=== PATIENT | female | born 2000 | race Caucasian/White ===

== ENCOUNTER 2019-06-03 14:32 | Day surgery (SDC) | payer OTHER ==
[2019-06-03 15:20] VITALS: BMI 38.5
[2019-06-03] MEDS ORDERED: hydrALAZINE 20 MG/ML VIAL SLOW IVP PRN (15:49)
[2019-06-03 16:22] LABS: #Eosinphils 0.1 thou/uL (0.0-0.7); #Lymphocytes 1.8 thou/uL (1.20-3.40); #Monocytes 0.5 thou/uL (0.11-0.59); %Eosinophils 0.5 % (0.0-10.0); %Lymphocytes 19.7 % (21.0-51.0); %Monocytes 4.9 % (0.0-10.0); %Neutrophils 74.8 % (42.0-75.0); Hemoglobin 12.9 g/dL (12.0-16.0); Mean Corpuscular Hemoglobin 26.6 pg (27.0-31.0); Mean Corpuscular Volume 80.7 fL (78.0-98.0); Mean Platelet Volume 9.9 fL (7.4-10.4); Platelet Count 238 thou/uL (130-400); RBC Distribution Width 13.5 % (11.5-14.5); Red Blood Cell (RBC) Count 4.85 mill/uL (4.20-5.40); White Blood Cell (WBC) Count 9.4 thou/uL (4.8-10.8)
[2019-06-03 16:34] LABS: Creatinine, Urine 30.71 mg/dL (47-110); Protein, Urine Random Quant Less than 10 mg/dL (1-14)
--- NOTE | 2019-06-03 18:41 | ER ---
DATE OF SERVICE: 06/03/2019 TIME OF SERVICE: 1800 hours. PRESENTING COMPLAINT: Elevated blood pressures at home for evaluation at 35 weeks' gestation. HISTORY OF PRESENT ILLNESS: Ms. Escobar is a 1, para 0, who sees Dr. Severo Dodd at [facility], EDC is 07/04 which placed her at 35 weeks' gestation. She has been having some mildly elevated blood pressures noted in clinic and is watching blood pressures at home. She reported 140s to 150s at home with a mild headache. She presents for further evaluation. MANAGER OF PHOTOGRAPHY HISTORY: As noted. Blood type O positive, antibody negative. Pap negative. Rubella immune. VDRL nonreactive. Hepatitis B, GC, chlamydia negative. Group B strep not done. PAST MEDICAL HISTORY: Denies. PAST SURGICAL HISTORY: Tonsils. ALLERGIES: DENIES. MEDICATIONS: vitamins. SOCIAL HISTORY: Denies tobacco, alcohol, or IV drug use. FAMILY HISTORY: Noncontributory. REVIEW OF SYSTEMS: Noncontributory. PHYSICAL EXAMINATION: GENERAL: White female, in no acute distress. VITAL SIGNS: Initial blood pressure was 132/85, serial blood pressures revealed systolics between 108 and 142 and diastolics in the 80s. Pulse is 85, respirations 18, and temperature 98.6. HEENT: Within normal limits. LUNGS: Clear to auscultation bilaterally. HEART: Regular rate and rhythm. ABDOMEN: Soft and nontender. Fundal height of 35 cm. FHTs 140s. Category I heart rate tracing. EXTREMITIES: With trace edema. LABORATORY DATA: Dipstick urinalysis is 1+. Hematocrit is 39%, platelet count is 238. AST is 14. Ghtnazl-hd-fkqjlshffr ratio is immeasurably low. Serial blood pressures did not reveal any evidence of severe preeclampsia. The patient had reassuring heart rate tracing. IMPRESSION: Mild gestational hypertension/preeclampsia at 35 weeks' gestation. PLAN: Discharge home. Keep scheduled followup in [address] Dodd. Continue blood pressures at home. ER precautions. Job ID: [id number]
== END 2019-06-03 18:20 | disposition home or self-care (01) ==
LOC: L&D/OP 14:32
PROVIDERS: ATTEND Obstetrics & Gynecology
DX: O14.93 Unspecified pre-eclampsia, third trimester (principal); Z3A.35 35 weeks gestation of pregnancy
CPT/HCPCS: 36415; 82570; 84156; 84450; 85025; 99283

== ENCOUNTER 2019-06-07 10:53 | Day surgery (SDC) | payer OTHER ==
[2019-06-07 11:22] VITALS: BMI 39.3
[2019-06-07 11:48] LABS: #Lymphocytes 1.4 thou/uL (1.20-3.40); #Monocytes 0.4 thou/uL (0.11-0.59); #Neutrophils 8.3 thou/uL (1.40-6.50); %Basophils 0.2 % (0.0-1.0); %Eosinophils 0.3 % (0.0-10.0); %Lymphocytes 13.5 % (21.0-51.0); %Monocytes 3.9 % (0.0-10.0); %Neutrophils 82.1 % (42.0-75.0); Hemoglobin 12.3 g/dL (12.0-16.0); Mean Corpuscular HGB CONC 33.2 g/dL (32.0-36.0); Mean Corpuscular Hemoglobin 26.4 pg (27.0-31.0); Mean Corpuscular Volume 79.6 fL (78.0-98.0); Mean Platelet Volume 9.8 fL (7.4-10.4); Platelet Count 206 thou/uL (130-400); RBC Distribution Width 13.5 % (11.5-14.5); Red Blood Cell (RBC) Count 4.66 mill/uL (4.20-5.40)
[2019-06-07 12:21] LABS: ALT (SGPT) 14 U/L (8-55); AST (SGOT) 13 U/L (5-34); Albumin 3.4 g/dL (3.5-5.0); Alkaline Phosphatase 267 U/L (40-150); Anion Gap 14 mmol/L (10-20); BUN (Urea Nitrogen) 7 mg/dL (7.0-18.7); Bilirubin, Total 0.2 mg/dL (0.2-1.2); Calc. Creatinine Clearance 211 mL/min (70-130); Calcium 9.3 mg/dL (7.8-10.44); Carbon Dioxide 19 mmol/L (22-29); Chloride 104 mmol/L (98-107); Estimated GFR-MDRD Greater than 90; Globulin 2.8 g/dL (2.4-3.5); Glucose 80 mg/dL (70-105); Potassium 4.1 mmol/L (3.5-5.1); Protein, Total 6.2 g/dL (6.0-8.3); Sodium 133 mmol/L (136-145)
== END 2019-06-07 12:45 | disposition home health service (06) ==
LOC: L&D/OP 10:53
PROVIDERS: ATTEND Obstetrics & Gynecology
DX: O16.9 Unspecified maternal hypertension, unspecified trimester (principal); Z91.018 Allergy to other foods; Z3A.00 Weeks of gestation of pregnancy not specified
CPT/HCPCS: 36415; 80053; 85025

== ENCOUNTER 2019-06-08 10:48 | Day surgery (SDC) | payer OTHER ==
[2019-06-08] MEDS ORDERED: Betamet Acet/Betamet Na Ph 30 MG/5 ML VIAL IM SCH (11:15)
== END 2019-06-08 11:24 | disposition home or self-care (01) ==
LOC: L&D/OP 10:48
PROVIDERS: ATTEND Obstetrics & Gynecology
DX: Z29.8 Encounter for other specified prophylactic measures (principal); Z91.018 Allergy to other foods
CPT/HCPCS: J0702

== ENCOUNTER 2019-06-10 10:29 | Inpatient (IN) | payer OTHER ==
[~2019-06-10 10:29] MED LIST: Bupivacaine/Epinephrine 0.25% 30 ML VIAL ONE
[2019-06-10 11:17] VITALS: BMI 39.6
[2019-06-10] MEDS ORDERED: Misoprostol 100 MCG TAB ONE (12:12)
[2019-06-10] MEDS ORDERED: NS / Oxytocin 40 units/1000ml 1,000 ML IV PRN (12:14)
[2019-06-10] MEDS ORDERED: HYDROcodone/Acetaminophen 5/325 mg Tablet PO PRN ×2 (12:14)
[2019-06-10] MEDS ORDERED: Acetaminophen 500 MG TAB PO PRN (12:14)
[2019-06-10] MEDS ORDERED: Ondansetron PF 4 MG/2 ML Vial IVP PRN ×2 (12:14→21:33)
[2019-06-10] MEDS ORDERED: Lidocaine 1% (PF) 30 ML VIAL SC PRN (12:14)
[2019-06-10] MEDS ORDERED: Ibuprofen 800 MG TAB PO PRN (12:14)
[2019-06-10] MEDS ORDERED: hydrALAZINE 20 MG/ML VIAL SLOW IVP PRN (12:14)
[2019-06-10] MEDS ORDERED: Promethazine HCl 25 MG/ML VIAL IM PRN ×2 (12:14→21:33)
[2019-06-10] MEDS ORDERED: Penicillin G Potassium 5 MILL.UNITS in Sodium Chloride 0.9% 100 ML IVPB SCH (12:15)
[2019-06-10] MEDS ORDERED: NS w/ Oxytocin 10 units 500 ML IV SCH (12:15)
[2019-06-10] MEDS ORDERED: Misoprostol 100 MCG TAB VAG SCH (12:15)
[2019-06-10 12:35] LABS: Mean Corpuscular HGB CONC 33.5 g/dL (32.0-36.0); Mean Corpuscular Hemoglobin 26.6 pg (27.0-31.0); Mean Corpuscular Volume 79.3 fL (78.0-98.0); Mean Platelet Volume 10.3 fL (7.4-10.4); Platelet Count 240 thou/uL (130-400); RBC Distribution Width 13.6 % (11.5-14.5); White Blood Cell (WBC) Count 14.7 thou/uL (4.8-10.8)
[2019-06-10 12:57] LABS: ALT (SGPT) 15 U/L (8-55); AST (SGOT) 15 U/L (5-34); Albumin 3.5 g/dL (3.5-5.0); Alkaline Phosphatase 257 U/L (40-150); Anion Gap 14 mmol/L (10-20); BUN (Urea Nitrogen) 12 mg/dL (7.0-18.7); Bilirubin, Total 0.2 mg/dL (0.2-1.2); Calc. Creatinine Clearance 213 mL/min (70-130); Calcium 9.2 mg/dL (7.8-10.44); Carbon Dioxide 21 mmol/L (22-29); Chloride 107 mmol/L (98-107); Estimated GFR-MDRD Greater than 90; Globulin 2.4 g/dL (2.4-3.5); Glucose 72 mg/dL (70-105); Potassium 4.2 mmol/L (3.5-5.1); Protein, Total 5.9 g/dL (6.0-8.3); Sodium 138 mmol/L (136-145)
[2019-06-10 13:13] LABS: Syphilis Antibody Nonreactive (Nonreactive); Syphilis Antibody Index 0.02 S/CO (<1.00 Non-Reactive)
[2019-06-10 13:53] LABS: HBSAg Index 0.13 S/CO (0-0.99); Hep B Surf Ag Non-Reactive S/CO (NonReactive)
[2019-06-10] MEDS: Butorphanol Tartrate 1 MG/ML VIAL SLOW IVP PRN ×2 (18:24→20:07)
[2019-06-10] MEDS: Lactated Ringer's 1,000 ML IV SCH ×2 (18:26→21:57)
[2019-06-10] MEDS ORDERED: Fentanyl 4 mcg/Bup 0.1% Cadd 100 ML ONE (21:02)
[2019-06-10] MEDS ORDERED: diphenhydrAMINE 50 MG/ML VIAL IVP PRN (21:33)
[2019-06-10] MEDS ORDERED: Naloxone HCl 0.4 mg/ml Vial IVP PRN ×2 (21:33)
[2019-06-10] MEDS ORDERED: ePHEDrine/0.9% NaCl/PF SYRINGE 50 mg/10 ml SLOW IVP PRN (21:33)
[2019-06-10] MEDS ORDERED: Lactated Ringer's 500 ML IV PRN (21:33)
[2019-06-10] MEDS ORDERED: Acetaminophen 325 MG TAB PO PRN (21:33)
[2019-06-10] MEDS ORDERED: Communication Order-Pharmacy FS SCH (21:45)
[2019-06-10] MEDS: Fentanyl 4 mcg/Bupivacaine 0.1% Cassette 100 ML EPIDURAL SCH (21:55)
[2019-06-11] MEDS: Lactated Ringer's 1,000 ML IV SCH (02:41)
[2019-06-11] MEDS: Misoprostol 100 MCG TAB VAG SCH ×3 (04:12→06:02)
[2019-06-11] MEDS: Fentanyl 4 mcg/Bupivacaine 0.1% Cassette 100 ML EPIDURAL SCH ×2 (04:23→10:35)
[2019-06-11] MEDS: Penicillin G 2.5 MILL.units 2.5 MILL.UNITS in Premix Bag 1 BAG IVPB SCH (06:02)
[2019-06-11] MEDS ORDERED: Fentanyl 4 mcg/Bup 0.1% Cadd 100 ML ONE (10:32)
[2019-06-11] MEDS ORDERED: Fentanyl 100 MCG/2 ML VIAL ONE ×2 (10:38→11:32)
[2019-06-11] MEDS ORDERED: MORPHINE 5 MG/10 ML PF VIAL ONE (10:38)
[2019-06-11] MEDS ORDERED: Oxytocin 10 UNITS/ML VIAL ONE ×2 (10:39→11:18)
[2019-06-11] MEDS ORDERED: Ondansetron PF 4 MG/2 ML Vial ONE ×2 (10:39→22:12)
[2019-06-11] MEDS ORDERED: Metoclopramide HCl 10 MG/2 ML VIAL ONE ×2 (10:39→22:12)
[2019-06-11] MEDS ORDERED: Lidocaine 2% 10 ML INJ ONE (10:40)
[2019-06-11] MEDS ORDERED: Bicitra 30 ML UDCUP ONE (10:42)
[2019-06-11] MEDS ORDERED: CEFAZOLIN 2 GM in Premix Bag 1 BAG IVPB SCH (11:15)
[2019-06-11] MEDS ORDERED: Bicitra 30 ML UDCUP PO SCH (11:15)
[2019-06-11] MEDS ORDERED: Carboprost 250 MCG/ML AMP ONE (11:17)
[2019-06-11] MEDS ORDERED: Ketorolac Tromethamine 30 MG/ML VIAL ONE ×2 (11:32→22:12)
[2019-06-11] MEDS ORDERED: Meperidine HCl/PF 25 MG/ML VIAL SLOW IVP PRN (11:52)
[2019-06-11] MEDS ORDERED: Promethazine HCl 25 MG/ML VIAL IM PRN ×2 (11:52)
[2019-06-11] MEDS ORDERED: Ondansetron HCl/PF 4 MG/2 ML Vial IVP PRN (11:52)
[2019-06-11] MEDS ORDERED: diphenhydrAMINE 50 MG/ML VIAL IVP PRN ×2 (11:52)
[2019-06-11] MEDS ORDERED: Naloxone HCl 0.4 mg/ml Vial IV PRN ×2 (11:52)
[2019-06-11] MEDS ORDERED: HYDROmorphone 2 MG/ML VIAL SLOW IVP PRN (11:52)
[2019-06-11] MEDS ORDERED: Naloxone HCl 0.4 mg/ml Vial IVP PRN ×2 (11:52)
[2019-06-11] MEDS ORDERED: diphenhydrAMINE 50 MG/ML VIAL IM PRN (11:52)
[2019-06-11] MEDS ORDERED: Promethazine HCl 25 MG SUPP PR PRN (11:52)
[2019-06-11] MEDS ORDERED: Ondansetron PF 4 MG/2 ML Vial IVP PRN ×3 (11:52→16:55)
[2019-06-11] MEDS ORDERED: Zolpidem Tartrate 5 MG TAB PO PRN (11:52)
[2019-06-11] MEDS ORDERED: diphenhydrAMINE 25 MG CAP PO PRN ×2 (11:52→16:55)
[2019-06-11] MEDS ORDERED: fentaNYL Citrate/PF 2,000 MCG in Sodium Chloride 0.9% 60 ML IV PRN (11:52)
[2019-06-11] MEDS ORDERED: L&D-Morphine 4 MG/ML VIAL SLOW IVP PRN (11:52)
[2019-06-11] MEDS ORDERED: hydrALAZINE 20 MG/ML VIAL ONE (11:58)
[2019-06-11] MEDS ORDERED: Ketorolac Tromethamine 30 MG/ML VIAL IVP SCH (12:00)
[2019-06-11] MEDS ORDERED: Communication Order-Pharmacy FS PRN ×2 (12:00)
--- NOTE | 2019-06-11 12:37 | PDOC.EVN ---
Event Note - Event Note Event Note: HD 2 CS called earlier for recurrent late decelerations, remote from delivery. GETA during CS, and hemabate for uterine atony. Mother awake and doing well but sustained severe range BP. Magnesium ordered, IV hydralazine given Plan for magnesium for 24 hrs PP.
[2019-06-11] MEDS ORDERED: Magnesium Sulfate 20 gm/500 ml 20 GM/500 ML BAG ONE (12:38)
[2019-06-11] MEDS ORDERED: Calcium Gluconate 4.6 MEQ in Sodium Chloride 0.9% 100 ML IVPB PRN (12:38)
[2019-06-11] MEDS: Magnesium Sulfate 20 gm/500 ml 20 GM/500 ML BAG IVPB SCH ×2 (12:45→20:14)
--- NOTE | 2019-06-11 13:07 | OP ---
DATE OF PROCEDURE: 06/11/2019 PREOPERATIVE DIAGNOSES: 1. Induction of labor for preeclampsia. 2. 36 weeks and 5 days. 3. Nonreassuring status, remote from delivery. POSTOPERATIVE DIAGNOSIS: Status post primary low-transverse section. BASS STRING WINDER: Benedict Patterson MD COMPLICATIONS: None. ESTIMATED BLOOD LOSS: 600 mL. ANESTHESIA: GETA per Dr. Sanchez, with epidural in place. OPERATIVE FINDINGS: 1. Low-transverse hysterotomy without extension. Clear amniotic fluid. Male infant. Apgars 1 and 9 to Nursery. Weight pending at the time of dictation. 2. Cord gas sent with pH of 7.227. 3. Placenta delivered with 3-vessel cord. 4. Atonic uterus immediately after delivery of the placenta, firm after a dose of Hemabate and Pitocin infusion through her IV. 5. Low-transverse hysterotomy without extension. 6. Normal-appearing uterus, tubes, and ovaries bilaterally. INDICATIONS: Ms. Annie Escobar was admitted on 06/10 from the clinic with worsening preeclampsia at 36 weeks, and after completing the 2 doses of steroids and achieving her steroid benefit 2 days prior, the patient began our induction of labor with cervical ripening with Cytotec. She was noted to have late decelerations with her Cytotec administration, that resolved after her 3rd dose. The patient had a Cook balloon placed at 1 cm, and after approximately 2-3 hours after Cook balloon placement, the patient began having recurrent late decelerations. The patient was then counseled for a primary section for nonreassuring status, remote from delivery. DESCRIPTION OF PROCEDURE: The patient was taken back to the OR with fluids running. A Lobato catheter and epidural catheter that were previously placed. Her epidural was dosed. She was transported to the OR. Once she was in the operating room, she was placed in dorsal supine position with a left lateral tilt. heart tones were in the 130s. The abdomen was prepped and draped in normal fashion for section. Surgeons were gowned and gloved. Anesthesia was tested and the patient was complained of feeling the anesthesia test. The patient was then underwent induction of general anesthesia and was intubated, had induction of began with a Pfannenstiel skin incision. The skin incision was carried down through the subcutaneous to tissue to the fascia with a scalpel. Once the fascia was reached, it was incised in the midline and extended superolaterally using curved Willoughby scissors. Natalie clamps were placed at the superior border of the fascia, which was sharply and bluntly dissected off the rectus abdominis muscles. After the fascia was dissected away from the rectus muscles in a cephalad direction and was repeated at the inferior border of the fascia in a caudad direction towards the level of the pubic symphysis. The rectus muscles and peritoneum were then bluntly entered and stretched laterally. An Glen O retractor was placed in the abdominal peritoneal cavity for retraction, visualization, and protection of the wound. A bladder flap was created with a scalpel and was dissected away from the planned hysterotomy site. A low-transverse hysterotomy was made with a scalpel. The uterus was bluntly entered and stretched laterally using the Wong maneuver. An amniotomy was performed and clear fluid was noted. The was delivered without difficulty through the hysterotomy. The nose and mouth were suctioned. The cord was doubly clamped and cut, and the was handed off to special care nurses in attendance. A cord segment was collected for blood gas and cord blood was collected. The placenta was then delivered. The uterus was exteriorized and massage was noted to be atonic. Hemabate was ordered and the uterus was returned to the abdominal cavity. Hysterotomy was closed with a running locking stitch of Monocryl suture. After the Hemabate was given, the uterus was noted to be firm. The hysterotomy was inspected. It was copiously irrigated as well as the paracolic gutters were irrigated. The hysterotomy and paracolic gutters were then suctioned dry. The hysterotomy was inspected with no bleeding noted. The Glen O retractor was then removed from the abdominal cavity. The rectus muscle, peritoneum, and fascia were inspected and no areas of bleeding were noted. The rectus fascia was then reapproximated with PDS suture from corner to corner in a running fashion. The subcutaneous tissue was then irrigated and dried. Any small areas of bleeding were controlled with Bovie cauterization. The subcutaneous tissue was reapproximated with plain gut suture. The skin was reapproximated with 4-0 Monocryl and dressed with Dermabond dressing. The uterine fundus was noted to be firm again. The patient was then extubated and transferred to the recovery room in good condition. During her recovery period, her blood pressures were noted to be sustained in the severe range. She will be admitted to OI and remained on magnesium for approximately 24 hours . Job ID: [id number]
[2019-06-11] MEDS ORDERED: Magnesium Sulfate 20 GM/WATER 500 ML BAG IVPB SCH (13:15)
--- NOTE | 2019-06-11 13:33 | OP ---
DATE OF PROCEDURE: 06/11/2019 PRIMARY OB: Severo Dodd DO, MS The patient is a 19-year-old female, who is taken to the OR for a primary for nonreassuring heart tones. For complete details, please refer to Dr. Dodd's operative note. I functioned as dietitian assistant to her. Job ID: [id number]
[2019-06-11] MEDS ORDERED: hydrALAZINE 20 MG/ML VIAL SLOW IVP PRN (16:55)
[2019-06-11] MEDS ORDERED: NS / Oxytocin 40 units/1000ml 1,000 ML IV SCH (16:55)
[2019-06-11] MEDS ORDERED: Simethicone Chewable 80 MG TAB PO PRN (16:55)
[2019-06-11] MEDS ORDERED: Adacel (T-DAP) 0.5 ML SYRINGE IM ONE (16:55)
[2019-06-11] MEDS ORDERED: Bisacodyl 10 MG SUPP PR PRN (16:55)
[2019-06-11] MEDS ORDERED: HYDROcodone/Acetaminophen 5/325 mg Tablet PO PRN ×2 (16:55)
[2019-06-11] MEDS ORDERED: Lidocaine 2% PF 5 ML VIAL ONE (22:12)
[2019-06-11] MEDS ORDERED: Succinylcholine Chloride 20 MG/ML 10 ml SYRINGE FS ONE (22:12)
[2019-06-11] MEDS ORDERED: PROPOFOL 200 MG/20 ML VIAL ONE (22:12)
[2019-06-12] MEDS: Ibuprofen 800 MG TAB PO SCH ×5 (01:00→21:13)
[2019-06-12] MEDS ORDERED: Acetaminophen 500 MG TAB PO PRN (04:03)
[2019-06-12] MEDS: Ferrous Sulfate 325 MG TAB PO SCH ×2 (04:09→08:47)
[2019-06-12] MEDS: Docusate Calcium (SURFAK) 240 MG CAP PO SCH ×2 (04:09→08:47)
[2019-06-12] MEDS: Ampicillin 2 GM in Sodium Chloride 0.9% 100 ML IVPB SCH ×4 (04:10→22:12)
[2019-06-12 04:48] LABS: Hemoglobin 13.2 g/dL (12.0-16.0); Mean Corpuscular HGB CONC 33.3 g/dL (32.0-36.0); Mean Corpuscular Hemoglobin 26.3 pg (27.0-31.0); Mean Platelet Volume 9.9 fL (7.4-10.4); Platelet Count 276 thou/uL (130-400); RBC Distribution Width 14.1 % (11.5-14.5); Red Blood Cell (RBC) Count 5.01 mill/uL (4.20-5.40); White Blood Cell (WBC) Count 19.7 thou/uL (4.8-10.8)
[2019-06-12] MEDS: Clindamycin/D5W 900 MG in Premix Bag 1 BAG IVPB SCH ×3 (05:16→21:13)
[2019-06-12] MEDS: Magnesium Sulfate 20 gm/500 ml 20 GM/500 ML BAG IVPB SCH (06:09)
[2019-06-12] MEDS: Gentamicin Sulfate 100 MG in Premix Bag 1 BAG IVPB SCH ×3 (06:10→23:19)
--- NOTE | 2019-06-12 07:45 | RAD ---
CHEST 1 VIEW: INDICATION: Fever and congestion. COMPARISON: Prior exam dated 12/03/2016. FINDINGS: There are perhilar airspace opacities, right greater than left, without neo airspace consolidation. No definite pleural effusion is evident. Heart size is magnified by the exam technique. IMPRESSION: Perihilar airspace opacities, right greater than left, may reflect an atypical pneumonia; however, en tities such as pulmonary edema or hemorrhage are not excluded. Recommend continued radiographic foll owup. POS: BH
[2019-06-12] MEDS ORDERED: Prenatal Vitamin 1 TAB PO SCH (09:00)
--- NOTE | 2019-06-12 09:42 | PDOC.PP ---
Post Progress Note Post Day #: 1 Subjective: POD1 Magnesium recovery for seizure prophylaxis Antibiotics (amp/gent/clinda) for PP fever S: feeling much better, reports feeling better almost immediately after starting abx this AM. Reports feeling flu like around 2-3am with fever noted by nurse. Pt reports baby is latching, no breast pain or redness, no abdominal pain, no chest pain, no cough, no SOB O: BP 130-140/90s, pulse 80-90s, temperature not in EMR, most recent at approx 0700 afebrile, last fever around 300 103. Chest: nonlabored breathing Abd: appropriate post op tenderness/minimal, incision dressing clean and dry Ext: no cords NAD A and O Laboratory Results - last 24 hr 06/12/19 04:14 WBC 19.7 H RBC 5.01 Hgb 13.2 Hct 39.6 MCV 79.0 MCH 26.3 L MCHC 33.3 RDW 14.1 Plt Count 276 MPV 9.9 A/P: POD1 after NRFHT at 1cm/remote from delivery. Magnesium for PP severe range BP. WIll DC magnesium today at approx 1200. Will continue IV abx broad spectrum. Urine culture and blood culture pending, CXR repeat recommended and scheduled for later this afternoon when she is ambulatory. Weight Weight 217 lb - Physical Examination General: NAD Respiratory: clear to auscultation bilaterally, non-labored breathing Abdominal: no distention Result Diagrams: 06/12/19 04:14 06/10/19 12:11 Additional Labs: Post Labs Blood Type O POSITIVE 06/10/19 12:49 Hep Bs Antigen Non-Reactive S/CO (NonReactive) 06/10/19 12:11 (1) Severe pre-eclampsia Code(s): O14.10 - SEVERE PRE-ECLAMPSIA, UNSPECIFIED TRIMESTER Status: Acute (2) delivery delivered Code(s): O82 - ENCOUNTER FOR DELIVERY WITHOUT INDICATION Status: Acute (3) fever Code(s): O86.4 - PYREXIA OF UNKNOWN ORIGIN FOLLOWING DELIVERY Status: Acute (4) 36 weeks gestation of Code(s): Z3A.36 - 36 WEEKS GESTATION OF Status: Acute - Assessment/Plan O: BP 130-140/90s, pulse 80-90s, temperature not in EMR, most recent at approx 0700 afebrile, last fever around 300 103. Chest: nonlabored breathing Abd: appropriate post op tenderness/minimal, incision dressing clean and dry Ext: no cords NAD A and O Laboratory Results - last 24 hr 06/12/19 04:14 WBC 19.7 H RBC 5.01 Hgb 13.2 Hct 39.6 MCV 79.0 MCH 26.3 L MCHC 33.3 RDW 14.1 Plt Count 276 MPV 9.9 A/P: POD1 after NRFHT at 1cm/remote from delivery. Magnesium for PP severe range BP. WIll DC magnesium today at approx 1200. Will continue IV abx broad spectrum. Urine culture and blood culture pending, CXR repeat recommended and scheduled for later this afternoon when she is ambulatory.
[2019-06-12] MEDS ORDERED: Bisacodyl 10 MG SUPP PR PRN (13:31)
[2019-06-12] MEDS ORDERED: hydrALAZINE 20 MG/ML VIAL SLOW IVP PRN (13:31)
[2019-06-12] MEDS ORDERED: HYDROcodone/Acetaminophen 5/325 mg Tablet PO PRN (13:31)
[2019-06-12] MEDS ORDERED: Adacel (T-DAP) 0.5 ML SYRINGE IM ONE (13:31)
[2019-06-12] MEDS: Misoprostol 100 MCG TAB VAG SCH ×2 (13:40→13:41)
[2019-06-12] MEDS: Lactated Ringer's 1,000 ML IV SCH (13:41)
[2019-06-12] MEDS ORDERED: NIFEdipine 10 MG CAP PO PRN (14:15)
--- NOTE | 2019-06-12 15:54 | RAD ---
EXAM: Chest Two Views 06/12/2019 3:50 PM HISTORY: History of fever and COMPARISON: June 12, 2019 at 4:05 AM FINDINGS: Heart: Normal in size and contour. Pulmonary vessels: Pulmonary vascular congestion has improved. Costophrenic angles: There are small bilateral pleural effusions. Lungs: There is improvement in the perihilar airspace opacities. Infrahilar opacities remain. Pneumothorax: None. Osseous structures:Intact. Additional findings: None. IMPRESSION: Suspected improving bilateral perihilar edema. Infrahilar airspace opacities remain. Small bilateral pleural effusions are seen within the costophrenic angles .
[2019-06-12] MEDS: Simethicone Chewable 80 MG TAB PO PRN (16:41)
[2019-06-12] MEDS: Diabetic Tussin 200 MG/10 ML UDCUP PO PRN (19:02)
[2019-06-13] MEDS: Diabetic Tussin 200 MG/10 ML UDCUP PO PRN ×4 (01:15→21:03)
[2019-06-13] MEDS: HYDROcodone/Acetaminophen 5/325 mg Tablet PO PRN ×3 (03:40→16:44)
[2019-06-13] MEDS: Ampicillin 2 GM in Sodium Chloride 0.9% 100 ML IVPB SCH ×2 (03:41→09:23)
[2019-06-13] MEDS: Clindamycin/D5W 900 MG in Premix Bag 1 BAG IVPB SCH (04:50)
[2019-06-13 06:14] LABS: Hemoglobin 10.6 g/dL (12.0-16.0); Mean Corpuscular HGB CONC 33.1 g/dL (32.0-36.0); Mean Corpuscular Hemoglobin 26.6 pg (27.0-31.0); Mean Corpuscular Volume 80.3 fL (78.0-98.0); Mean Platelet Volume 9.2 fL (7.4-10.4); Platelet Count 234 thou/uL (130-400); RBC Distribution Width 13.7 % (11.5-14.5); Red Blood Cell (RBC) Count 3.98 mill/uL (4.20-5.40); White Blood Cell (WBC) Count 13.4 thou/uL (4.8-10.8)
[2019-06-13] MEDS: Ibuprofen 800 MG TAB PO SCH ×3 (06:17→21:00)
[2019-06-13] MEDS: Gentamicin Sulfate 100 MG in Premix Bag 1 BAG IVPB SCH (06:17)
[2019-06-13] MEDS: Simethicone Chewable 80 MG TAB PO PRN ×2 (09:18→16:44)
[2019-06-13] MEDS: Prenatal Vitamin 1 TAB PO SCH (09:21)
--- NOTE | 2019-06-13 09:29 | PDOC.PP ---
Post Progress Note Post Day #: 2 Subjective: doing well, productive cough, no fever or chills, feels even better today, nursing well PO intake tolerated: yes Flatus: yes Ambulation: yes Vital Signs (12 hours) Temp Pulse Resp BP Pulse Ox 06/13/19 08:11 98.1 F 82 18 159/95 H 97 06/13/19 03:46 99.1 F 98 18 143/87 H 94 L 06/13/19 00:05 99.2 F 111 H 20 131/74 91 L Weight Weight 217 lb - Physical Examination General: NAD Respiratory: clear to auscultation bilaterally, non-labored breathing Abdominal: no distention Extremities: negative homans (B) Skin: CS incision dry & intact, no rash Neurological: no gross focal deficits Psychiatric: A&Ox3, normal affect Result Diagrams: 06/13/19 06:04 06/10/19 12:11 Additional Labs: Post Labs Blood Type O POSITIVE 06/10/19 12:49 Hep Bs Antigen Non-Reactive S/CO (NonReactive) 06/10/19 12:11 (1) Severe pre-eclampsia Code(s): O14.10 - SEVERE PRE-ECLAMPSIA, UNSPECIFIED TRIMESTER Status: Acute (2) delivery delivered Code(s): O82 - ENCOUNTER FOR DELIVERY WITHOUT INDICATION Status: Acute (3) fever Code(s): O86.4 - PYREXIA OF UNKNOWN ORIGIN FOLLOWING DELIVERY Status: Acute (4) 36 weeks gestation of Code(s): Z3A.36 - 36 WEEKS GESTATION OF Status: Acute (5) Lower respiratory infection (e.g., bronchitis, pneumonia, pneumonitis, pulmonitis) Code(s): J22 - UNSPECIFIED ACUTE LOWER RESPIRATORY INFECTION Status: Acute - Assessment/Plan POD2 S/P CS for NRFHT complicated by severe preeclampisa and post fever. I suspect based on hx, PE and CXR that fever was related to a lower respiratory illness that was exacerbated by GETA for CS. Has improved w IV abx, will transition to oral abx today. Continue to monitor BP closely, procardia ordered.
[2019-06-13] MEDS ORDERED: NIFEdipine XL 30 MG TAB PO SCH (10:00)
[2019-06-13] MEDS: Amoxicillin/Potassium Clav 875 MG TAB PO SCH ×2 (12:24→21:00)
[2019-06-14] MEDS: Ibuprofen 800 MG TAB PO SCH ×3 (05:44→21:58)
--- NOTE | 2019-06-14 08:10 | PDOC.PP ---
Post Progress Note Post Day #: 3 Subjective: feeling well, no fever or chills, minimal cough, no congestion, minimal discomfort, pumping, BF and bottle PO intake tolerated: yes Flatus: yes Ambulation: yes Vital Signs (12 hours) Temp Pulse Resp BP 06/14/19 05:40 98.1 F 81 18 138/92 H 06/13/19 23:30 98.1 F 85 16 132/66 Weight Weight 217 lb - Physical Examination General: NAD Respiratory: non-labored breathing Skin: CS incision dry & intact, no rash Neurological: no gross focal deficits Psychiatric: A&Ox3, normal affect Result Diagrams: 06/13/19 06:04 06/10/19 12:11 Additional Labs: Post Labs Blood Type O POSITIVE 06/10/19 12:49 Hep Bs Antigen Non-Reactive S/CO (NonReactive) 06/10/19 12:11 (1) Severe pre-eclampsia Code(s): O14.10 - SEVERE PRE-ECLAMPSIA, UNSPECIFIED TRIMESTER Status: Acute (2) delivery delivered Code(s): O82 - ENCOUNTER FOR DELIVERY WITHOUT INDICATION Status: Acute (3) 36 weeks gestation of Code(s): Z3A.36 - 36 WEEKS GESTATION OF Status: Acute (4) Lower respiratory infection (e.g., bronchitis, pneumonia, pneumonitis, pulmonitis) Code(s): J22 - UNSPECIFIED ACUTE LOWER RESPIRATORY INFECTION Status: Acute - Assessment/Plan POD3 doing well, afebrile off IV abx, on Augmentin BID for lower respiratory infection. BP mild range on procardia 30mg a day. Would like to DC home this afternoon if baby is discharged, otherwise will stay for B and B vs. another night of observation.
[2019-06-14] MEDS: Amoxicillin/Potassium Clav 875 MG TAB PO SCH ×2 (08:27→21:58)
[2019-06-14] MEDS: Prenatal Vitamin 1 TAB PO SCH (08:27)
[2019-06-14] MEDS: NIFEdipine XL 30 MG TAB PO SCH (08:28)
[2019-06-15] MEDS: Ibuprofen 800 MG TAB PO SCH (06:05)
--- NOTE | 2019-06-15 06:15 | PDOC.PP ---
Post Progress Note Post Day #: 4 Subjective: Patient states she is feeling well this AM. Cough essentially resolved. Afebrile. No N/V/D. Ambulating without difficultly. Pain well controlled with motrin alone. No dizziness or lightheadedness. Less bleeding than regular menses. PO intake tolerated: yes Flatus: yes Ambulation: yes Vital Signs (12 hours) Temp Pulse Resp BP Pulse Ox 06/15/19 04:05 98.4 F 77 18 126/83 06/15/19 00:55 98.6 F 84 20 155/92 H 06/14/19 20:58 98.4 F 88 16 142/84 H 97 Weight Weight 98.43 kg - Physical Examination General: NAD Cardiovascular: no m/r/g, RRR Respiratory: clear to auscultation bilaterally, non-labored breathing Abdominal: + bowel sounds, lochia, no distention, appropriately TTP Extremities: negative homans (B) Skin: CS incision dry & intact, no rash Neurological: no gross focal deficits Psychiatric: A&Ox3, normal affect Result Diagrams: 06/13/19 06:04 06/10/19 12:11 Additional Labs: Post Labs Blood Type O POSITIVE 06/10/19 12:49 Hep Bs Antigen Non-Reactive S/CO (NonReactive) 06/10/19 12:11 (1) 36 weeks gestation of Code(s): Z3A.36 - 36 WEEKS GESTATION OF Status: Acute (2) delivery delivered Code(s): O82 - ENCOUNTER FOR DELIVERY WITHOUT INDICATION Status: Acute (3) Lower respiratory infection (e.g., bronchitis, pneumonia, pneumonitis, pulmonitis) Code(s): J22 - UNSPECIFIED ACUTE LOWER RESPIRATORY INFECTION Status: Acute (4) Severe pre-eclampsia Code(s): O14.10 - SEVERE PRE-ECLAMPSIA, UNSPECIFIED TRIMESTER Status: Acute - Assessment/Plan Pre-e - cont procardia 30mg, BP in mild range Cough - resolved - afebrile, bcx negative x2 PPD4 - pain controlled - tolerating PO F/u with Dr Dodd in 3-5 days to check on pressures D/c today
--- NOTE | 2019-06-15 06:43 | PDOC.EVN ---
Event Note - Event Note Event Note: POD4 Doing well Patient seen by me at bedside OK for DC to home Incision sutured F/U 2 weeks wound check
[2019-06-15 09:23] VITALS: BP 137/89; TEMP 98.3
[2019-06-15] MEDS: NIFEdipine XL 30 MG TAB PO SCH (09:32)
[2019-06-15] MEDS: Amoxicillin/Potassium Clav 875 MG TAB PO SCH (09:32)
[2019-06-15] MEDS: Prenatal Vitamin 1 TAB PO SCH (09:32)
--- NOTE | 2019-06-18 05:37 | PQF ---
KENN MUNSON JAMIE DO [id number] CLINICAL DOCUMENTATION CLARIFICATION FORM: POST DISCHARGE Addendum to original discharge summary date: ____ Late entry note date: __ DATE: 06-18-2019 ATTN:Severo Juárez Please exercise your independent, professional judgment in responding to the clarification form. Clinical indicators are provided on the bottom of this form for your review In your clinical opinion, can you please further specify the diagnosis of Lower Respiratory Infection as: Please check appropriate box(s): [ ] Pneumonia [ ] Acute Bronchitis [ ] Pneumonitis [ ] Other diagnosis please specify: [ x] Unable to determine In addition, please specify: Present on Admission (POA): [ x ] Yes [ ] No [ ] Unable to determine For continuity of documentation, please document condition throughout progress notes and discharge summary. Thank You. CLINICAL INDICATORS: PN p1 06/12-Temperature not in EMR, most recent approx 0700 afebrile , last fever around 300 103 PN p1 06/12-Chest : nonlabored breathing Chest X-ray 06/12-Impression: Perihilar airspce opacities, right greater than left, may reflect an atypical pneumonia; however, entitles such as pulmonary edema or hemorrhage are not excluded PN 06/13-I suspect based on hx, PE and CXR that fever was related to a lower respiratory illness that was exacerbated by GETA for CS PN p2 06/13-Lower respiratory infection (e.g bronchitis, pneumonia, pneumonitis, pulmonitis RISK FACTORS: PN p1 06/12-Temperature not in EMR, most recent approx 0700 afebrile , last fever around 300 103 PN p1 06/12-Chest : nonlabored breathing TREATMENTS: PN p1 06/12-Amp/Gent/Clinda PN 06/12-Ordered Urine culture and blood culture PN p1 06/12-CXR repeat recommended (This form is maintained as a part of the permanent medical record) 2014 [employer] All Rights Reserved [email or web address] [not [email or web address]] [email or web address]
== END 2019-06-15 12:30 | disposition home or self-care (01) | DRG 788 ==
LOC: L&D/OP 10:29 → L&D 13:38 → 3SW 06-12 13:34
PROVIDERS: ADMIT Obstetrics & Gynecology; ATTEND Obstetrics & Gynecology
PROC: 10D00Z1 Extraction of Products of Conception, Low, Open Approach (ICD-10-PCS; principal; 2019-06-11)
PROC: 0U7C7ZZ Dilation of Cervix, Via Natural or Artificial Opening (ICD-10-PCS; 2019-06-11)
PROC: 3E0P7VZ Introduction of Hormone into Female Reproductive, Via Natural or Artificial Opening (ICD-10-PCS; 2019-06-11)
DX: O14.14 Severe pre-eclampsia complicating childbirth (principal); O76 Abnormality in fetal heart rate and rhythm complicating labor and delivery; Z3A.36 36 weeks gestation of pregnancy; Z37.0 Single live birth; O99.53 Diseases of the respiratory system complicating the puerperium; J22 Unspecified acute lower respiratory infection; O62.2 Other uterine inertia; Z67.40 Type O blood, Rh positive
CPT/HCPCS: 36415; 51702; 71045; 71046; 80053; 82805; 83735; 85027; 86780; 86850; 86900; 86901; 87040; 87086; 87340; 88307; 90715; C1726; J0290; J0360; J0595; J0690; J1580; J1885; J2001; J2274; J2405; J2590; J2704; J2765; J3010; J3475; J3490

== ENCOUNTER 2021-03-19 09:58 | Outpatient (CLI) | payer OTHER | END 2021-03-19 09:59 | disposition home or self-care (01) | LOC: TBSIIMAG 09:58 | PROVIDERS: ATTEND Orthopaedic Surgery | DX: S83.412A Sprain of medial collateral ligament of left knee, initial encounter (principal) ==